=== PATIENT | female | born 2000 | race Caucasian/White ===

== ENCOUNTER 2025-08-22 14:22 | Emergency (ER) | payer BC, SELFPAY ==
[2025-08-22 14:33] VITALS: BP 124/85
--- NOTE | 2025-08-22 16:08 | ED.SKININJ ---
HPI-Injury
General
Chief Complaint: Head Injury
Source: patient
Exam Limitations: none
Time Seen by Provider: 08/22/25 15:51
Nursing documentation reviewed up to this point in time: agreed with
History of Present Illness-Injury
Initial Injury comments:
Note:
CHIEF COMPLAINT(S)
Head laceration and concern about scarring.
HISTORY OF PRESENT ILLNESS
The patient is a 38-year-old male who sustained a head laceration after accidentally hitting the corner of a cabinet while standing up in his office. He noted that the injury caused a visible gash on his head. Initially, the patient applied a
band-aid as the bleeding ceased, but upon noticing the depth of the laceration and being unable to manage his aversion to blood, he sought medical attention to prevent scarring. The patient reported a bruise beneath the laceration, which is 0.5 cm
in size and located on the forehead. He was advised on wound care, including minimal touching, keeping it dry for a day, and the optional use of a covering. The likelihood of a subtle scar was discussed, and it was noted that no plastic surgical
intervention would be necessary at this point due to the nature of the wound.
PHYSICAL EXAM
- General: Alert, no acute distress.
- Integumentary: Laceration present on the forehead, approximately 0.5 cm in diameter, with a bruised area below. Covered with a dressing.
- Head: Normocephalic, atraumatic aside from described injury.
- Eye, Ears, Nose, Mouth and Throat: Oral mucosa moist.
- Cardiovascular: Normal peripheral perfusion, no edema.
- Respiratory: Respirations are non-labored.
- Gastrointestinal: Abdomen non-distended.
- Back: Normal range of motion, normal alignment.
- Musculoskeletal: Normal range of motion, normal strength.
- Neurological: Alert and oriented to person, place, time, and situation, no focal neurological deficit observed.
- Psychiatric: Cooperative, appropriate mood & affect.
PROBLEM LIST
- Acute: Head laceration with associated bruising.
PLAN
The patient was advised on appropriate wound care, which includes keeping the laceration dry tonight and covering it if desired. The potential for forming a minimal scar was discussed, and the patient was informed that no further surgical
intervention is needed. Patient was reassured and instructed to avoid disturbing the wound and not to apply any substances such as ointments unless instructed otherwise. Follow-up care was suggested if any signs of infection or complications arise.
DIFFERENTIAL DIAGNOSIS
The Differential Diagnosis includes, in no particular order and is not limited to:
- Superficial head laceration
- Contusion
- Abrasion
- Hematoma
- Skull fracture
- Scalp hematoma
- Concussion
- Intracranial hemorrhage
- Infection of wound
- Foreign body in wound
Disposition:
SUMMARY OF ENCOUNTER
The patient, a 25-year-old female, presented with a superficial forehead laceration. The laceration was repaired using skin glue. No other injuries were identified. The patient was evaluated for potential concussion or intracranial hemorrhage, but
no signs indicated such conditions.
DISPOSITION
Discharge.
PLAN
The patient was provided with return precautions and advised to follow up with primary care as needed. Immunizations are up to date.
PATIENT EDUCATION AND COUNSELING
The patient was informed about the treatment of her laceration and advised on what symptoms to monitor for (return precautions) following her visit.
FOLLOW-UP INSTRUCTIONS
Follow up with primary care as needed.
MEDICAL DECISION MAKING
- Number and Complexity of Problems Addressed: The main problem was a superficial head laceration. Differential diagnosis included superficial head laceration, contusion, abrasion, hematoma, skull fracture, scalp hematoma, concussion, intracranial
hemorrhage, infection of wound, and foreign body in wound.
- Data:
Category 1: Clinical evaluation indicated the presence of a superficial forehead laceration, which was effectively treated. No need for further imaging or tests was determined at this visit.
Category 2: The assessment was made based on the patients report and direct examination, without the need for additional history from external sources.
- Risk: Prescription medication was not required following the treatment of the laceration. The decision for discharge was made based on a comprehensive assessment that ruled out acute life-threatening conditions such as concussion or intracranial
hemorrhage. Consideration of Admission/Observation: Escalation of care including admission/observation was considered given the potential for head injury. However, ultimately, I feel the patient is safe for outpatient management with close follow
up. Reasoning: Work-up reassuring, does not reveal any acute life/organ threatening processes, patients symptoms well controlled upon reevaluation, reexamination is reassuring, vitals are stable, patient agreeable with discharge, reliable for
follow-up.
DIAGNOSIS
- Superficial laceration of forehead (S01.81XA)
Phy Exam
Physical Exam
Physical Exam:
.
Course
Vital Signs
Initial and Last Documented VS:
Initial Vital Signs
Temp Pulse Resp BP Pulse Ox
98.0 F 79 16 124/85 98
08/22/25 14:33 08/22/25 14:33 08/22/25 14:33 08/22/25 14:33 08/22/25 14:33
Last Documented Vital Signs
Temp Pulse Resp BP Pulse Ox
98.0 F 79 16 124/85 98
08/22/25 14:33 08/22/25 14:33 08/22/25 14:33 08/22/25 14:33 08/22/25 16:10
Procedures
Laceration Closure
Forehead:
Status of Wound: clean
Size of Wound in cm: 0.5
Description of Wound Edges: sharp and surrounded by abrasion
Preparation: cleaned with saline
Revision/Debridement: routine- no revision
Wound exploration: explored to base- no FB
Type of Closure: Dermabond-skin glue
*Pulse Oximetry
SaO2: 98
Oxygen Mode of Delivery: Room air
Patient hypoxic: no
*Critical Care Note
Total Time (30-74mins, 75-104mins- exclusive of procedures): Not Applicable
ED Attending Note
-
Portions of this chart may have been created with voice recognition software.� Occasional wrong word or��sound alike� substitutions may have occurred due to the inherent limitations of voice recognition software.
Discharge Plan
Departure
Patient Disposition: Home (Routine Discharge)
Date of Disposition: 08/22/25
Time of Disposition: 16:09
Patient with high blood pressure during this ER visit?: Yes
Condition: Good
Discharge Problem:
Forehead laceration
Instructions: Laceration Repair With Glue (DC), Minor Head Injury (DC), BLOOD PRESSURE
Referrals:
NONE,* [Family Provider, Internal Medicine]
Activity Restrictions/Additional Instructions:
Follow up with primary care as needed. Return for any concerns.
Interventions
Interventions:
*Risk Screen - Suicide Last Done: 08/22/25 14:33
*General Assessment Last Done: 08/22/25 14:33
*Neglect/Abuse Screening Last Done: 08/22/25 14:33
*ED COVID-19 Vaccine History Last Done: 08/22/25 14:33
*ED Influenza Vaccine History Last Done: 08/22/25 14:33
*Nursing Disposition Last Done: 08/22/25 16:20
ED- Neurological Assessment Last Done: 08/22/25 16:19
ED-Skin Assessment Last Done: 08/22/25 16:19
Discharge Date and Time
Discharge Date/Time: 08/22/25 16:20
Print Language: INDONESIAN
== END 2025-08-22 16:20 | disposition home or self-care (01) ==
LOC: EMR 14:22
PROVIDERS: EMERGENCY PHYSICIAN Emergency Medicine
DX: S01.81XA Laceration without foreign body of other part of head, initial encounter (principal); W22.09XA Striking against other stationary object, initial encounter
CPT/HCPCS: 99282; 12011